=== PATIENT | female | born 1955 | race Caucasian/White ===

== ENCOUNTER 2020-01-04 12:58 | Emergency (ER) | payer MEDICARE ==
[2020-01-04] MEDS ORDERED: DUONEB 0.5-3 MG/3 ml Neb IH ONE ×2 (13:44→13:52)
[2020-01-04] MEDS ORDERED: solu-MEDROL 125 MG IV ONE (13:44)
[2020-01-04] MEDS ORDERED: solu-MEDROL 125 MG ONE (14:04)
[2020-01-04 14:12] LABS: Absolute Neutrophil Ct (ANC) 11.24 (1.4-6.9); BASOPHIL % 0.2 % (0.0-0.4); Basophil (Absolute #) 0.03 (0-0.4); Eosinophil % 0.8 % (0.00-5.0); Eosinophil (Absolute #) 0.12 (0-0.5); Hematocrit 48.8 % (35-47); Hemoglobin 16.2 gm/dl (12.0-16.0); Lymphocytes % 15.5 % (24.0-44.0); Mean Cell Volume 88.4 fl (78-100); Mean Corpuscular Hemoglobin 29.3 pg (26-32); Mean Corpuscular Hgb Concent. 33.2 g/dl (32-36); Mean Platelet Volume 11.4 fl (7.5-11.0); Monocyte (Absolute #) 0.62 (0.0-1.3); Monocytes % 4.4 % (0.0-12.0); Neutrophil % 79.1 % (36.0-66.0); Platelet Count 269 K/mm3 (150-450); Red Blood Count 5.52 M/mm3 (4.1-5.4); Red Cell Distribution Width 13.9 % (11.5-14.0); White Blood Count 14.2 K/mm3 (4.0-10.5)
[2020-01-04 14:15] LABS: INR 1.23 (0.8-3.0); PROTIME 13.9 SECONDS (9.95-12.35)
[2020-01-04 14:18] LABS: PTT 36.5 SECONDS (25.3-37.0)
--- NOTE | 2020-01-04 14:22 | ERPHSYRPT ---
- History of Present Illness Time Seen by Provider: 01/04/20 13:17 Source: patient, family Exam Limitations: no limitations Patient Subjective Stated Complaint: Pt states that yesterday she was sitting on the couch atound 1500 and fell off the couch and hit her right side of her head on the floor, pt thinks she may have had a stroke yesterday, she has a hx of 9 strokes, 2 of which she had to learn to walk again, pt c/o of head pain, unsteady gait that is new, hasn't ate or drank since yesterday around 1600 because it was making her sick Triage Nursing Assessment: Pt brought to the ER by her sister, pt very unsteady on her feet and needed assistance to stand to get in the bed, no visible markings on her right side of head, lungs have coarse crackles nelia throughout, pt states that she feels short of breath and this has been for the past 2 days, pulses normal, clear productive cough Physician History: 64 years old female with history of hypertension, hyperlipidemia, diabetes mellitus, 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 Patient reports she was sitting on the couch and all of a sudden she fell on the floor hitting right head yesterday afternoon with no loss of consciousness. Since then she is having mild to moderate generalized headache and is getting unsteady on her gait. Patient report having similar symptoms with previous strokes. Denies any visual symptoms, difficulty speech, numbness but has mild increased weakness on the left side than her baseline. Denies any chest pain but has shortness of breath and cough productive of yellow-green sputum copious in amount for the last 2 to 3 days. Denies any fever or chills. Timing/Duration: yesterday, sudden Severity: moderate Modifying Factors: Improves With: movement Associated Symptoms: nausea, shortness of breath, headaches, weakness, No vomiting, No abdominal pain, No chest pain Allergies/Adverse Reactions: codeine Allergy (Severe, Verified 01/04/20 13:31) Home Medications: Aspirin EC 325 mg [Ecotrin 325 MG] 325 mg PO BID 01/04/20 [History] Atorvastatin Calcium [Lipitor 20MG Tablet] 20 mg PO HS 01/04/20 [History] Clopidogrel Bisulfate [Clopidogrel] 75 mg PO HS 01/04/20 [History] Glyburide/Metformin HCl [Glyburide-Metformin 5-500 mg] 1 tab PO BID 01/04/20 [History] atenoloL [Atenolol] 100 mg PO DAILY 01/04/20 [History] Travel Risk - International Travel Have you traveled outside of the country in past 3 weeks: No - Coronavirus Screening Are you exhibiting any of the following symptoms?: No Close contact with a COVID-19 positive Pt in past 14-21 Days: No - Review of Systems Constitutional: Fatigue, Weakness Eyes: No Symptoms Ears, Nose, & Throat: No Symptoms Respiratory: Cough, Dyspnea, Wheezing Cardiac: No Symptoms Abdominal/Gastrointestinal: Nausea Genitourinary Symptoms: No Symptoms Musculoskeletal: Myalgias Skin: No Symptoms Neurological: Gait Changes, Headache, No Focal Weakness Psychological: No Symptoms Endocrine: No Symptoms Hematologic/Lymphatic: No Symptoms Immunological/Allergic: No Symptoms - Past Medical History Pertinent Past Medical History: Yes Neurological History: Stroke, TIA Cardiac History: High Cholesterol, Hypertension Respiratory History: CHF Endocrine Medical History: Diabetes Type II Musculoskeletal History: No Pertinent History GI Medical History: No Pertinent History Psycho-Social History: No Pertinent History - Past Surgical History Past Surgical History: Yes Gastrointestinal: Cholecystectomy Female Surgical History: Dilation & Curettage, Tubal Ligation Other Surgical History: carotid cleaned out - Social History Smoking Status: Current every day smoker Exposure to second hand smoke: Yes Drug Use: none Patient Lives Alone: No - Female History Hx Now: No - Nursing Vital Signs Nursing Vital Signs: Initial Vital Signs Temperature 98.4 F 01/04/20 13:12 Pulse Rate 57 L 01/04/20 13:12 Blood Pressure 199/74 01/04/20 13:12 O2 Sat by Pulse Oximetry 94 L 01/04/20 13:12 Pain Scale Pain Intensity 2 - Physical Exam General Appearance: no apparent distress, alert Eye Exam: PERRL/EOMI, eyes nml inspection Ears, Nose, Throat Exam: normal ENT inspection, TMs normal, pharynx normal Neck Exam: normal inspection, non-tender, supple, full range of motion Respiratory Exam: diminished breath sounds, crackles/rales, wheezing Cardiovascular Exam: regular rate/rhythm, normal heart sounds, normal peripheral pulses Gastrointestinal/Abdomen Exam: soft, normal bowel sounds, No tenderness Back Exam: normal inspection, No CVA tenderness Extremity Exam: normal range of motion, pelvis stable, pedal edema Neurologic Exam: alert, oriented x 3, cooperative, supervisor tank cleaning II-XII nml as tested, normal mood/affect, nml cerebellar function, sensation nml, motor deficits (4/5 left upper and lower extremities), No nml station & gait, No sensory deficit, No disoriented Skin Exam: normal color SpO2 Interpretation: normal SpO2: 100 O2 Delivery: Room Air - Course Nursing assessment & vital signs reviewed: Yes EKG Interpreted by Me: RATE (55), NORMAL AXIS, NORMAL INTERVALS (Unspecific ST changes, LVH with early repolarization) Ordered Tests: Active Orders 24 hr Category Date Time Status Customer Service Security Officer STAT Care 01/04/20 13:45 Completed EKG-ER Only STAT Care 01/04/20 13:44 Completed IV Insertion STAT Care 01/04/20 13:44 Completed NPO (ED) STAT Care 01/04/20 13:44 Completed CHEST 2 VIEWS (PA AND LAT) Stat Exams 01/04/20 13:[address] ANGIOGRAPHY NECK [CT] Stat Exams 01/04/20 17:29 Completed CTA HEAD W AND/OR WO CONTRAST [CT] Stat Exams 01/04/20 17:29 Completed HEAD WITHOUT CONTRAST [CT] Stat Exams 01/04/20 13:44 Completed BLOOD CULTURE Stat Lab 01/04/20 14:20 Received CBC W DIFF Stat Lab 01/04/20 13:25 Completed CMP Stat Lab 01/04/20 13:25 Completed Lactic Acid Stat Lab 01/04/20 13:56 Completed MAGNESIUM Stat Lab 01/04/20 13:25 Completed NT PRO BNP Stat Lab 01/04/20 13:25 Completed PROTIME WITH INR Stat Lab 01/04/20 13:25 Completed PTT Stat Lab 01/04/20 13:25 Completed TROPONIN Q3H Lab 01/04/20 13:37 Completed TROPONIN Q3H Lab 01/04/20 17:25 Completed Respiratory Therapy Assessment DAILY RT 01/04/20 13:58 Completed Medication Summary Discontinued Medications Generic Name Dose Route Start Last Admin Trade Name Freq PRN Reason Stop Dose Admin Albuterol/Ipratropium 3 ml 01/04/20 13:44 01/04/20 14:06 Duoneb 0.5-3 Mg/3 Ml Neb IH 01/04/20 13:45 3 ml STAT ONE Administration Albuterol/Ipratropium Confirm 01/04/20 13:52 Duoneb 0.5-3 Mg/3 Ml Neb Administered 01/04/20 13:53 Dose 3 ml IH .STK-MED ONE Enoxaparin Sodium 40 mg 01/04/20 18:47 01/04/20 19:39 Enoxaparin Sodium SQ 01/04/20 18:48 40 mg STAT ONE Administration Enoxaparin Sodium Confirm 01/04/20 19:39 Enoxaparin Sodium Administered 01/04/20 19:40 Dose 80 mg SQ .STK-MED ONE Levofloxacin/Dextrose 750 mg in 150 mls @ 100 mls/hr 01/04/20 17:31 01/04/20 18:22 Levofloxacin 750mg/150ml D5w IV 01/04/20 19:00 100 mls/hr STAT STA 100 mls/hr Administration Sodium Chloride 1,000 mls @ 100 mls/hr 01/04/20 17:45 01/04/20 18:22 Sodium Chloride 0.9% 1000 Ml IV 02/03/20 17:44 100 mls/hr .Q10H YOSVANY Administration Levofloxacin/Dextrose Confirm 01/04/20 18:19 Levofloxacin 750mg/150ml D5w Administered 01/04/20 18:20 Dose 750 mg in 150 mls @ ud IV .STK-MED ONE Sodium Chloride Confirm 01/04/20 18:19 Sodium Chloride 0.9% 1000 Ml Administered 01/04/20 18:20 Dose 1,000 mls @ ud .ROUTE .STK-MED ONE Methylprednisolone Sodium Succinate 125 mg 01/04/20 13:44 01/04/20 14:06 Solu-Medrol 125 Mg IV 01/04/20 13:45 125 mg STAT ONE Administration Methylprednisolone Sodium Succinate Confirm 01/04/20 14:04 Solu-Medrol 125 Mg Administered 01/04/20 14:05 Dose 125 mg .ROUTE .STK-MED ONE Simvastatin 80 mg 01/04/20 22:00 01/04/20 19:54 Zocor 20mg PO 02/03/20 21:59 80 mg HS YOSVANY Administration Lab/Rad Data: Laboratory Result Diagrams 01/04/20 13:25 01/04/20 13:25 Laboratory Results 01/04/20 01/04/20 01/04/20 Range/Units 17:25 13:56 13:37 WBC (4.0-10.5) K/mm3 RBC (4.1-5.4) M/mm3 Hgb (12.0-16.0) gm/dl Hct (35-47) % MCV (78-100) fl MCH (26-32) pg MCHC (32-36) g/dl RDW (11.5-14.0) % Plt Count (150-450) K/mm3 MPV (7.5-11.0) fl Gran % (36.0-66.0) % Eos # (Auto) (0-0.5) Absolute Lymphs (auto) (1.0-4.6) Absolute Monos (auto) (0.0-1.3) Lymphocytes % (24.0-44.0) % Monocytes % (0.0-12.0) % Eosinophils % (0.00-5.0) % Basophils % (0.0-0.4) % Absolute Granulocytes (1.4-6.9) Basophils # (0-0.4) PT (9.95-12.35) SECONDS INR (0.8-3.0) APTT (25.3-37.0) SECONDS Sodium (137-145) mmol/L Potassium (3.5-5.1) mmol/L Chloride (98-107) mmol/L Carbon Dioxide (22-30) mmol/L Anion Gap (5-15) MEQ/L BUN (7-17) mg/dL Creatinine (0.52-1.04) mg/dL Estimated GFR ML/MIN Glucose (74-106) mg/dL Lactic Acid 1.2 (0.4-2.0) Calcium (8.4-10.2) mg/dL Magnesium (1.6-2.3) mg/dL Total Bilirubin (0.2-1.3) mg/dL AST (14-36) U/L ALT (0-35) U/L Alkaline Phosphatase (38-126) U/L Troponin I 0.014 0.014 (0.000-0.034) ng/mL NT-Pro-B Natriuret Pep (0-900) pg/mL Serum Total Protein (6.3-8.2) g/dL Albumin (3.5-5.0) g/dL 01/04/20 01/04/20 01/04/20 Range/Units 13:25 13:25 13:25 WBC 14.2 H (4.0-10.5) K/mm3 RBC 5.52 H (4.1-5.4) M/mm3 Hgb 16.2 H (12.0-16.0) gm/dl Hct 48.8 H (35-47) % MCV 88.4 (78-100) fl MCH 29.3 (26-32) pg MCHC 33.2 (32-36) g/dl RDW 13.9 (11.5-14.0) % Plt Count 269 (150-450) K/mm3 MPV 11.4 H (7.5-11.0) fl Gran % 79.1 H (36.0-66.0) % Eos # (Auto) 0.12 (0-0.5) Absolute Lymphs (auto) 2.20 (1.0-4.6) Absolute Monos (auto) 0.62 (0.0-1.3) Lymphocytes % 15.5 L (24.0-44.0) % Monocytes % 4.4 (0.0-12.0) % Eosinophils % 0.8 (0.00-5.0) % Basophils % 0.2 (0.0-0.4) % Absolute Granulocytes 11.24 H (1.4-6.9) Basophils # 0.03 (0-0.4) PT 13.9 H (9.95-12.35) SECONDS INR 1.23 (0.8-3.0) APTT 36.5 (25.3-37.0) SECONDS Sodium 138 (137-145) mmol/L Potassium 4.0 (3.5-5.1) mmol/L Chloride 102 (98-107) mmol/L Carbon Dioxide 25 (22-30) mmol/L Anion Gap 14.0 (5-15) MEQ/L BUN 13 (7-17) mg/dL Creatinine 0.60 (0.52-1.04) mg/dL Estimated GFR > 60.0 ML/MIN Glucose 110 H (74-106) mg/dL Lactic Acid (0.4-2.0) Calcium 9.8 (8.4-10.2) mg/dL Magnesium 1.8 (1.6-2.3) mg/dL Total Bilirubin 1.00 (0.2-1.3) mg/dL AST 21 (14-36) U/L ALT 14 (0-35) U/L Alkaline Phosphatase 116 (38-126) U/L Troponin I (0.000-0.034) ng/mL NT-Pro-B Natriuret Pep 2670 H (0-900) pg/mL Serum Total Protein 7.4 (6.3-8.2) g/dL Albumin 4.5 (3.5-5.0) g/dL - Progress Progress: re-examined Progress Note: 64 years old is evaluated for fall with generalized weakness with some more pronounced in the left upper and lower extremities and unsteady gait along with headache and shortness of breath. She is given breathing treatment and steroids, on reevaluation her breathing is better. I have obtained CT head without contrast which showed right peripheral posterior parietal area at subacu te infarct, she has already taken full dose aspirin this morning. I have ordered MRI but patient could not lie flat and she refused. I have obtained specialist implementation manager telemetry neuro consult recommended stat CT a head neck and other stroke work-up. It was also recommended to start her on Cardene drip to lower her pressure to 160 although patient's blood pressure currently is in 170s, I would hold off on Cardene for now. Discussed with Dr. Durán who recommended transfer to [place] for higher level of care. Neurology also recommended hypercoagulable work-up along with other routine stroke work-up. I have not ordered that work-up in here since patient is being transferred and with sent recommendation along with the patient. She has a white count of 14, grossly unremarkable chemistries. Chest x-ray negative for pneumonic infiltrate but I think patient has some COPD exacerbation and is given Solu-Medrol and a dose of Levaquin. I have discussed with Dr. Wali Mitchell and patient is accepted for transfer. 01/04/20 19:11 CTA neck showed left internal carotid occlusion with some reconstitution distally. Findings discussed with ER doctor at [facility] and he is o miranda with accepting patient over there. Discussed with DrRamiro: [place] (Recommended transfer to for higher level of care ), Other Counseled pt/family regarding: lab results, diagnosis, rad results - Departure Departure Disposition: Transfer Clinical Impression: COPD exacerbation Stroke Qualifiers: CVA mechanism: unspecified Qualified Code(s): I63.9 - Cerebral infarction, unspecified Condition: Fair Critical Care Time: Yes Critical Care Time(excluding separately billable procedures): Critical 75-104 mins Referrals: DOCTOR,NO FAMILY [Primary Care Provider] - Instructions: Chronic Obstructive Pulmonary Disease
--- NOTE | 2020-01-04 14:35 | XRAY ---
Exam: CT of the head without IV contrast from 01/04/2020. CTDI: 53.92 mGy Comparison: None. Indication: Patient fell and struck right side of head, rule out stroke. Technique: Non-IV contrast axial images were obtained through the brain. Reconstructed coronal and sagittal images were created and reviewed. Findings: The ventricles appear of unremarkable size and configuration. No midline shift is seen. There is no evidence of intracranial parenchymal hemorrhage, subarachnoid hemorrhage, or subdural/epidural hematoma. Within the upper posterior right parietal lobe on axial images #33 through #43, there is a band of low attenuation density which is fairly well defined and is probably due to an old posterior right parietal infarct within the upper right cerebral convexity. More importantly, anterior and slightly inferior to this level (but still within the peripheral posterior right parietal area), there is a focus of ill-defined decreased attenuation on axial images #28 through #41 which could represent a subacute infarct. Consider further evaluation with an MRI of the brain with diffusion-weighted imaging. No other abnormal high attenuation or low-attenuation brain lesions are seen. The cortical sulci and basilar cisterns appear unremarkable. There is mild hyperostosis frontalis interna. The calvarium of the skull appears intact without evidence of fracture. There is mild deviation of the nasal septum toward the right. There is subtle mucoperiosteal thickening is seen within the ethmoid sinuses. I also note minimal mucosal thickening within the sphenoid sinus. No air-fluid levels are seen. The mastoid air cells are clear without effusion. The middle ear cavities appear unremarkable. The orbits appear grossly unremarkable. Impression: 1. There appears to be an ill-defined focus of decreased attenuation within the peripheral posterior right parietal lobe which could represent a subacute infarct. Consider further evaluation with MRI of the brain with diffusion-weighted imaging. 2. In addition, in a bit higher and more posterior location within the high posterior right parietal lobe, there appears to be a better defined area of encephalomalacia which I believe is due to an old posterior right parietal infarct. 3. No evidence of acute intracranial bleed is seen. 4. Minimal chronic paranasal sinus disease, as discussed. 5. No fracture of the calvarium of the skull is seen. Hyperostosis frontalis interna is evident. Note: I personally called the emergency Department physician, Dr. Simpson, at 2:08 PM on 01/04/2020 regarding the first 3 impressions.
--- NOTE | 2020-01-04 14:37 | XRAY ---
Exam: Two-view chest from 01/04/2020. Comparison: None. Indication: Rule out pneumonia. Findings: Upright PA and lateral chest films were obtained. The transverse heart size is normal. There is a triangular airspace opacity behind the heart at the medial left lung base, best seen on the PA film. This is consistent with at least partial left lower lobe atelectasis. The gricel and remainder of the mediastinal structures appear unremarkable. I note minimal transverse linear stranding at the lateral left lung base consistent with plate atelectasis or scarring. There is also minimal blunting of the left lateral costophrenic angle consistent with pleural thickening or a tiny amount of pleural fluid. The remainder of the lung [place] appears clear. There is no pneumothorax. No acute osseous process is seen. Mild lower mid dorsal kyphosis and thoracic spondylosis are seen. Impression: 1. There is at least partial left lower lobe atelectasis. Consider mucous plugging or a central endobronchial lesion 2. I also note minimal linear scarring/plate atelectasis at the lateral left lung base and minor pleural thickening or pleural fluid blunting the left lateral costophrenic angle. 3. No air space infiltrates or other acute cardiopulmonary disease is seen.
[2020-01-04 14:40] LABS: ALBUMIN 4.5 g/dL (3.5-5.0); ALKALINE PHOSPHATASE 116 U/L (38-126); BLOOD UREA NITROGEN 13 mg/dL (7-17); CHLORIDE 102 mmol/L (98-107); Calcium 9.8 mg/dL (8.4-10.2); Carbon Dioxide 25 mmol/L (22-30); Glucose 110 mg/dL (74-106); MAGNESIUM 1.8 mg/dL (1.6-2.3); NT PRO BNP 2670 pg/mL (0-900); SGOT/AST 21 U/L (14-36); SGPT/ALT 14 U/L (0-35); SODIUM 138 mmol/L (137-145); Total Protein 7.4 g/dL (6.3-8.2)
[2020-01-04] MEDS ORDERED: LEVOFLOXACIN 750MG/150ML D5W 750 MG/150 ML BAG IV STA (17:31)
[2020-01-04] MEDS ORDERED: Sodium Chloride 0.9% 1000 ML 1,000 ML IV SCH (17:45)
[2020-01-04] MEDS ORDERED: LEVOFLOXACIN 750MG/150ML D5W 750 MG/150 ML BAG IV ONE (18:19)
[2020-01-04] MEDS ORDERED: Sodium Chloride 0.9% 1000 ML 1,000 ML ONE (18:19)
[2020-01-04] MEDS ORDERED: ENOXAPARIN SODIUM SQ ONE ×2 (18:47→19:39)
[2020-01-04] MEDS: ZOCOR 20MG PO SCH ×2 (19:50→19:54)
[2020-01-04 20:40] VITALS: BP 179/107; PULSE 68
--- NOTE | 2020-01-04 21:31 | XRAY ---
Indication: Stroke. Dissection. Conventional contrast enhanced CTA neck was performed using 80 cc Isovue 370 contrast. Two-dimensional sagittal and coronal reformatted images obtained. Comparison: None Visualized aortic arch demonstrates minimal arteriosclerotic calcifications without aneurysm/dissection. Normal branching right brachiocephalic, left common carotid, and left subclavian arteries. Minimal calcifications proximal/origin left common carotid and left subclavian arteries without critical stenosis or obstruction. Examination of the right carotid circulation demonstrates minimal scattered soft arteriosclerotic plaquing in the common carotid and carotid bulb. Origin of the external carotid artery demonstrates high-grade 99% stenosis. Internal carotid artery is normal in CTA appearance. Examination of the left carotid circulation demonstrates minimal scattered soft arteriosclerotic plaquing in the common carotid artery. Significant predominantly soft plaquing seen at the level of bulb producing high-grade 99% stenosis extending into the origin of the external carotid artery. Internal carotid artery is occluded. Vertebral arteries are bilaterally patent with the right vertebral artery larger in size/caliber. Visualized soft tissues demonstrates scattered small subcentimeter cervical lymph nodes bilaterally. No pathologic cervical/supraclavicular lymphadenopathy. Thyroid gland enhances homogeneously. Supra and infraglottic airway widely patent. Cervical spine intact with mild/moderate multilevel degenerative changes throughout. Limited upper abdomen demonstrates mild pulmonary emphysema. CTA head and CT had reported separately. Impression: 1. Significant arteriosclerotic plaquing in the left carotid bulb and origin of the external carotid artery producing high-grade 99% stenosis. Total occlusion of the left internal carotid artery. 2. Scattered arteriosclerotic disease in the right common carotid artery and bulb without critical stenosis/obstruction. High-grade 99% stenosis origin external carotid artery. 3. Bilaterally patent vertebral arteries with dominant right vertebral artery. 4. Incidental degenerative changes throughout the cervical spine and pulmonary emphysema. Comment: Preliminary interpretation was made by [facility]. No critical discrepancy.
--- NOTE | 2020-01-04 21:32 | XRAY ---
Indication: Stroke. Dissection. Conventional contrast enhanced CTA head was performed using 80 cc Isovue 370 contrast. Two-dimensional sagittal and coronal reformatted images obtained. Comparison: None CTA neck and CT head reported separately. Distal left internal carotid artery is occluded with reconstitution distal supraclinoid segment. Right internal carotid artery demonstrates mild scattered calcifications without critical stenosis/obstruction. Normal carotid terminus bilaterally. More distal anterior cerebral, middle cerebral, anterior communicating, and posterior communicating arteries are normal in CTA appearance. Posterior circulation demonstrates basilar artery to be normal course and caliber. Normal basilar tip with normal branching posterior cerebral and superior cerebellar arteries bilaterally. There is no abnormal enhancing intra-or extra-axial mass. Venous system unremarkable. Impression: 1. Occluded distal left internal carotid artery with reconstitution in the more distal supraclinoid segment. 2. Mild calcifications right internal carotid artery without critical stenosis/obstruction. 3. Remaining CTA head is negative. Comment: Preliminary interpretation was made by [facility]. No critical discrepancy.
[2020-01-04 22:19] VITALS: O2SAT 100
== END 2020-01-04 20:41 | disposition short-term general hospital (02) ==
LOC: ED 12:58
DX: J44.1 Chronic obstructive pulmonary disease with (acute) exacerbation (principal); I63.9 Cerebral infarction, unspecified; E11.9 Type 2 diabetes mellitus without complications; Z72.0 Tobacco use; Z79.899 Other long term (current) drug therapy; I10 Essential (primary) hypertension; E78.00 Pure hypercholesterolemia, unspecified; I50.9 Heart failure, unspecified; Z86.73 Personal history of transient ischemic attack (TIA), and cerebral infarction without residual deficits; E78.5 Hyperlipidemia, unspecified
CPT/HCPCS: 36000; 36415; 70450; 70496; 70498; 71046; 80053; 83605; 83735; 83880; 84484; 85025; 85610; 85730; 87040; 93005; 93041; 94640; 96365; 96372; 96374; 99285; 99291; J1650; J1956; J2930; A9270-GY